=== PATIENT | male | born 1990 | race Two or more races ===

== ENCOUNTER 2022-07-17 05:27 | Emergency (ER) | payer OTHER ==
[~2022-07-17] VITALS: Ht 172.7 cm; Wt 68.1 kg
[2022-07-17 05:36] VITALS: BP 130/84
[2022-07-17] MEDS ORDERED: CEPH-510 PO (07:06)
[2022-07-17] MEDS ORDERED: ERY05OO OP (07:06)
[2022-07-17] MEDS ORDERED: ACET1CAP14 PO (07:20)
== END 2022-07-17 07:23 | disposition home or self-care (01) ==
LOC: ER 05:27
DX: H10.9 Unspecified conjunctivitis (principal); H00.032 Abscess of right lower eyelid; H00.031 Abscess of right upper eyelid; Z79.2 Long term (current) use of antibiotics